=== PATIENT | female | born 1995 | race African-American/Black ===

== ENCOUNTER → 2022-07-07 | Emergency (ER) | payer SELFPAY ==
[~2022-07-07] VITALS: Ht 170.2 cm; Wt 62.1 kg
--- NOTE | 2022-07-07 04:30 | NUR ---
BIBS FROM HOME WITH CO OF LEFT SIDED NUMBNESS WHICH STARTED ABOUT AN HOUR AGO. PT IS AAO X 4, BREATHING UNLABORED. PATIENT STATES THE SYMPTOMS IS FROM FACE DOWN TO LEFT LEG. PT ATTACHED TO MONITOR AND PULSE OX. AWAITING MD PORTILLO.
--- NOTE | 2022-07-07 04:40 | NUR ---
DR LYMAN AT BEDSIDE
--- NOTE | 2022-07-07 04:50 | NUR ---
URINE COLLECTED, SENT TO LAB
--- NOTE | 2022-07-07 04:50 | NUR ---
CIRCUIT COURT JUDGE AT BEDSIDE
--- NOTE | 2022-07-07 04:50 | NUR ---
EMT AT BEDSIDE FOR EKG
[2022-07-07 05:03] LABS: BASOPHILS % (AUTO) 0.7 % (0.0-2.0); EOSINOPHILS % (AUTO) 1.8 % (0.0-6.0); HEMATOCRIT 42 % (33-45); HEMOGLOBIN 13.9 g/dL (11.5-14.8); LYMPHOCYTES % (AUTO) 34.7 % (20.0-44.0); MEAN CORPUSCULAR HGB CONC 33 g/dl (31.0-36.0); MEAN CORPUSCULAR VOLUME 93 fL (82-100); MONOCYTES # (AUTO) 0.5 K/uL (0.1-1.30); MONOCYTES % (AUTO) 8.4 % (2.0-12.0); NEUTROPHILS # (AUTO) 3.1 K/uL (1.8-8.9); NEUTROPHILS % (AUTO) 54.4 % (43.0-81.0); PLATELET COUNT (AUTO) 252 K/uL (150-450); RED BLOOD CELL COUNT(AUTO) 4.57 MIL/uL (4.0-5.2); WHITE BLOOD COUNT (AUTO) 5.7 K/uL (4.3-11.0)
[2022-07-07 05:14] LABS: CALCIUM, SERUM 9.6 mg/dL (8.5-10.1); CARBON DIOXIDE 28 mmol/L (21-32); CHLORIDE 103 mmol/L (98-107); CREATININE 0.6 mg/dL (0.6-1.3); GLUCOSE 103 mg/dL (74-106); POTASSIUM 4.5 mmol/L (3.5-5.1); SODIUM SERUM 138 mmol/L (136-145); UREA NITROGEN, BLOOD 17 mg/dL (7-18)
[2022-07-07 05:15] LABS: D-DIMER 0.19 mg/L(FEU (0.17-0.50)
[2022-07-07 05:24] LABS: ALANINE AMINOTRANSFERASE 14 U/L (12-78); ALBUMIN 4.3 g/dL (3.4-5.0); ALKALINE PHOSPHATASE 69 U/L (46-116); ASPARTATE AMINOTRANSFERASE 17 U/L (15-37); BILIRUBIN,DIRECT 0.2 mg/dL (0.0-0.2); BILIRUBIN,TOTAL 0.6 mg/dL (0.2-1.0); TOTAL PROTEIN, SERUM 7.7 g/dL (6.4-8.2)
[2022-07-07 06:21] VITALS: BP 108/63
== END | disposition home or self-care (01) ==
LOC: ER 04:26
DX: R00.2 Palpitations (principal); T43.625A Adverse effect of amphetamines, initial encounter; I10 Essential (primary) hypertension; E11.9 Type 2 diabetes mellitus without complications; Y92.89 Other specified places as the place of occurrence of the external cause
CPT/HCPCS: 36415; 71045-TC; 80048-TC; 80076-TC; 84484-TC; 84703-TC; 85025-TC; 85378-TC; 85730-TC